=== PATIENT | female | born 1960 | race Caucasian/White ===

== ENCOUNTER 2017-06-28 08:33 | Inpatient (IN) | payer OTHER ==
[2017-06-27 12:55] LABS: HEMATOCRIT 39.9 % (34.6-47.8); HEMOGLOBIN 13.4 g/dL (11.7-16.4); WHITE BLOOD COUNT 10.4 x10^3/uL (3.4-10)
[2017-06-27 13:07] LABS: BLOOD UREA NITROGEN 14 mg/dL (7-18)
[~2017-06-28] VITALS: Ht 170.2 cm; Wt 67.5 kg
[~2017-06-28 08:33] MED LIST: CALC-141 PO; CHOL500045 PO; LEVO137T2 PO; OMEG1CAP39 PO
[2017-06-28] MEDS ORDERED: FENTANYL PF 250 MCG/5ML ONE (14:26)
[2017-06-28] MEDS ORDERED: MIDAZOLAM 1 MG/ML, 2ML ONE (14:26)
[2017-06-28] MEDS ORDERED: LIDOCAINE 1%, 2ML ONE (14:40)
[2017-06-28] MEDS ORDERED: LACTATED RINGERS 1,000 ML IV SCH (14:44)
[2017-06-28 14:55] VITALS: BP 130/78
[2017-06-28] MEDS ORDERED: LIDOCAINE 1%, 2ML SQ PRN (15:00)
[2017-06-28] MEDS ORDERED: KETOROLAC 60 MG/2 ML ONE (15:01)
[2017-06-28] MEDS ORDERED: EPINEPHRINE 1 MG/ML, 1ML ONE (15:02)
[2017-06-28] MEDS ORDERED: TRANEXAMIC ACID 100 MG/ML, 10ML ONE (15:02)
[2017-06-28] MEDS ORDERED: ROPivacaine/PF 0.2%, 10 ML ONE (15:02)
[2017-06-28] MEDS ORDERED: SODIUM CHLORIDE 0.9% 0 ML ONE (15:02)
[2017-06-28] MEDS ORDERED: HYDROmorphone 2 MG/ML, 1ML ONE (15:32)
[2017-06-28] MEDS ORDERED: VANCOMYCIN 1,000 MG ONE (15:43)
[2017-06-28] MEDS ORDERED: KETAMINE 10 MG/ML, 20ML ONE (15:54)
[2017-06-28] MEDS ORDERED: ALBUTEROL/IPRATROPIUM 2.5MG/0.5MG, 3 ML NPPB PRN (16:30)
[2017-06-28] MEDS ORDERED: PROMETHAZINE 25 MG/ML, 1ML IV PRN (16:30)
[2017-06-28] MEDS ORDERED: FENTANYL PF 100 MCG/2ML IV PRN (16:30)
[2017-06-28] MEDS ORDERED: LORazepam 2 MG/ML, 1ML IVPush PRN (16:30)
[2017-06-28] MEDS ORDERED: LABETALOL 5MG/ML, 20ML IV PRN (16:30)
[2017-06-28] MEDS ORDERED: DIAZEPAM 5 MG/ML, 2ML IVPush PRN (16:30)
[2017-06-28] MEDS ORDERED: OXYcodone 5 MG/5 ML ORAL.SOL UDC PO PRN (16:30)
[2017-06-28] MEDS ORDERED: hydrALAzine 20 MG/ML, 1ML IV PRN (16:30)
[2017-06-28] MEDS ORDERED: ONDANSETRON 2MG/ML, 2ML IVPush PRN (16:30)
[2017-06-28] MEDS ORDERED: HYDROmorphone 1 MG/ML, 1ML IV PRN (16:30)
[2017-06-28] MEDS ORDERED: MIDAZOLAM 1 MG/ML, 2ML IV PRN (16:30)
[2017-06-28] MEDS ORDERED: ACETAMINOPHEN 325 MG TABLET PO PRN (16:30)
[2017-06-28] MEDS ORDERED: MEPERIDINE/PF 25MG/0.5ML IVPush PRN (16:30)
[2017-06-28] MEDS ORDERED: LIDOCAINE-MPF 2% ,5ML ONE ×3 (16:39)
[2017-06-28] MEDS ORDERED: ONDANSETRON 2MG/ML, 2ML ONE (17:03)
[2017-06-28] MEDS ORDERED: PROPOFOL 10 MG/ML, 20ML ONE (17:03)
[2017-06-28] MEDS ORDERED: CEFAZOLIN 1,000 MG ONE (17:03)
[2017-06-28] MEDS ORDERED: DEXAMETHASONE 4 MG/ML, 1ML ONE (17:03)
[2017-06-28] MEDS ORDERED: BUPIVACAINE/PF 0.25% ONE (17:03)
[2017-06-28] MEDS ORDERED: FENTANYL PF 100 MCG/2ML ONE (17:14)
[2017-06-28] MEDS ORDERED: HYDROmorphone 1 MG/ML, 1ML ONE (17:14)
[2017-06-28] MEDS ORDERED: DIPHENHYDRAMINE 25 MG CAPSULE PO PRN (17:30)
[2017-06-28] MEDS ORDERED: PROMETHAZINE 12.5 MG SUPP PR PRN (17:30)
[2017-06-28] MEDS ORDERED: PROMETHAZINE 25 MG/ML, 1ML IM PRN (17:30)
[2017-06-28] MEDS: ACETAMINOPHEN 650 MG/20.3 ML UDC PO SCH (17:30)
[2017-06-28] MEDS ORDERED: ONDANSETRON 4 MG TABLET PO PRN (17:30)
[2017-06-28] MEDS ORDERED: LORazepam 1MG TABLET PO PRN (17:30)
[2017-06-28] MEDS ORDERED: ALUMINUM/MAG/SIMETHICONE 30 ML UDC PO PRN (17:30)
[2017-06-28] MEDS ORDERED: ZOLPIDEM 5MG TABLET PO PRN (17:30)
[2017-06-28] MEDS ORDERED: ONDANSETRON 2MG/ML, 2ML IV PRN (17:30)
[2017-06-28] MEDS ORDERED: BISACODYL 10 MG SUPP PR PRN (17:30)
[2017-06-28] MEDS ORDERED: ACETAMINOPHEN 650 MG/20.3 ML UDC ONE (17:46)
[2017-06-28] MEDS ORDERED: OXYcodone 5 MG/5 ML ORAL.SOL UDC ONE (17:47)
[2017-06-28] MEDS ORDERED: TRANEXAMIC ACID 1,000 MG in SODIUM CHLORIDE 0.9% 100 ML IVPB ONE (18:00)
[2017-06-28] MEDS: HYDROmorphone 1 MG/ML, 1ML IV PRN (19:20)
[2017-06-28 20:00] VITALS: BP 105/66
[2017-06-28] MEDS: OXYcodone IR 5MG TABLET PO PRN (21:56)
[2017-06-28] MEDS: D5%-0.45NACL+KCL 20MEQ 1,000 ML IV SCH (21:57)
[2017-06-28] MEDS: DOCUSATE 100 MG CAPSULE PO SCH (22:52)
[2017-06-29] VITALS (7 sets, daily range): BP systolic 106–125; BP diastolic 61–86
[2017-06-29] MEDS: CEFAZOLIN PMX 1GM/50ML 50 ML IVPB SCH ×3 (00:55→16:38)
[2017-06-29] MEDS: HYDROmorphone 1 MG/ML, 1ML IV PRN ×4 (00:55→15:56)
[2017-06-29] MEDS ORDERED: ACETAMINOPHEN 500 MG TABLET ONE ×3 (01:50→17:46)
[2017-06-29] MEDS: OXYcodone IR 5MG TABLET PO PRN ×6 (01:53→22:56)
[2017-06-29] MEDS: ACETAMINOPHEN 650 MG/20.3 ML UDC PO SCH ×3 (01:53→17:55)
[2017-06-29] MEDS: VANCOMYCIN PMX 1GM/200ML 200 ML IVPB SCH ×2 (05:12→17:20)
[2017-06-29] MEDS ORDERED: DEXAMETHASONE 4 MG/ML, 1ML IVPush SCH (06:00)
[2017-06-29 06:10] LABS: BLOOD UREA NITROGEN 10 mg/dL (7-18)
[2017-06-29] MEDS: ASPIRIN 81 MG TABLET EC PO SCH ×2 (06:13→17:55)
[2017-06-29] MEDS: LEVOTHYROXINE 137 MCG TABLET PO SCH (06:13)
[2017-06-29] MEDS: D5%-0.45NACL+KCL 20MEQ 1,000 ML IV SCH ×2 (08:00→20:00)
[2017-06-29] MEDS: TAMSULOSIN 0.4 MG CAP.ER.24H PO SCH (09:00)
[2017-06-29] MEDS: DOCUSATE 100 MG CAPSULE PO SCH ×2 (09:04→21:24)
[2017-06-29] MEDS ORDERED: ASPIRIN 81 MG TABLET EC PO SCH (18:00)
[2017-06-30] MEDS: HYDROmorphone 1 MG/ML, 1ML IV PRN ×2 (00:25→16:13)
[2017-06-30 01:45] VITALS: BP 99/60
[2017-06-30] MEDS: ACETAMINOPHEN 650 MG/20.3 ML UDC PO SCH ×3 (01:58→18:36)
[2017-06-30] MEDS: CEFAZOLIN PMX 1GM/50ML 50 ML IVPB SCH ×3 (01:58→17:12)
[2017-06-30] MEDS: OXYcodone IR 5MG TABLET PO PRN ×6 (03:07→23:47)
[2017-06-30] MEDS: LEVOTHYROXINE 137 MCG TABLET PO SCH (05:10)
[2017-06-30] MEDS: ASPIRIN 81 MG TABLET EC PO SCH ×2 (05:10→18:36)
[2017-06-30] MEDS: D5%-0.45NACL+KCL 20MEQ 1,000 ML IV SCH ×2 (05:11→18:14)
[2017-06-30 08:23] VITALS: BP 102/57
[2017-06-30] MEDS: DOCUSATE 100 MG CAPSULE PO SCH ×2 (08:55→22:06)
[2017-06-30] MEDS: DIAZEPAM 5 MG TABLET PO PRN (08:55)
[2017-06-30] MEDS: TAMSULOSIN 0.4 MG CAP.ER.24H PO SCH (09:00)
[2017-06-30] MEDS ORDERED: ACETAMINOPHEN 500 MG TABLET ONE ×2 (10:40→18:30)
[2017-06-30 13:05] VITALS: BP 110/63
[2017-06-30] MEDS: MAGNESIUM HYDROXIDE 8%, 30ML UDC PO PRN (16:20)
[2017-06-30 19:00] VITALS: BP 111/70
[2017-07-01] MEDS: HYDROmorphone 1 MG/ML, 1ML IV PRN ×2 (00:37→10:44)
[2017-07-01] MEDS: CEFAZOLIN PMX 1GM/50ML 50 ML IVPB SCH ×2 (00:37→09:19)
[2017-07-01 01:43] VITALS: BP 121/68
[2017-07-01] MEDS ORDERED: ACETAMINOPHEN 500 MG TABLET ONE ×3 (02:00→17:58)
[2017-07-01] MEDS: ACETAMINOPHEN 650 MG/20.3 ML UDC PO SCH ×3 (02:03→18:00)
[2017-07-01] MEDS: D5%-0.45NACL+KCL 20MEQ 1,000 ML IV SCH ×2 (05:21→16:28)
[2017-07-01] MEDS: ASPIRIN 81 MG TABLET EC PO SCH ×2 (05:48→18:00)
[2017-07-01] MEDS: LEVOTHYROXINE 137 MCG TABLET PO SCH (05:49)
[2017-07-01] MEDS: OXYcodone IR 5MG TABLET PO PRN ×4 (07:16→20:47)
[2017-07-01 08:05] VITALS: BP 127/71
[2017-07-01] MEDS: DOCUSATE 100 MG CAPSULE PO SCH ×2 (08:55→20:47)
[2017-07-01] MEDS: MAGNESIUM HYDROXIDE 8%, 30ML UDC PO PRN (08:55)
[2017-07-01] MEDS: TAMSULOSIN 0.4 MG CAP.ER.24H PO SCH (09:00)
[2017-07-01] MEDS ORDERED: OXYcodone IR 5MG TABLET ONE (12:16)
[2017-07-01] MEDS: CEFTRIAXONE PMX 2GM/50ML 50 ML IV SCH (12:52)
[2017-07-01 13:43] VITALS: BP 104/61
[2017-07-01 19:30] VITALS: BP 126/63
[2017-07-02] MEDS: OXYcodone IR 5MG TABLET PO PRN ×6 (01:43→21:25)
[2017-07-02] MEDS ORDERED: ACETAMINOPHEN 500 MG TABLET ONE ×3 (01:44→17:50)
[2017-07-02] MEDS: ACETAMINOPHEN 650 MG/20.3 ML UDC PO SCH ×3 (01:45→17:58)
[2017-07-02 02:42] VITALS: BP 122/67
[2017-07-02] MEDS: D5%-0.45NACL+KCL 20MEQ 1,000 ML IV SCH ×3 (02:46→23:33)
[2017-07-02] MEDS: LEVOTHYROXINE 137 MCG TABLET PO SCH (05:49)
[2017-07-02] MEDS: ASPIRIN 81 MG TABLET EC PO SCH ×2 (05:49→17:58)
[2017-07-02 07:17] VITALS: BP 116/66
[2017-07-02] MEDS: TAMSULOSIN 0.4 MG CAP.ER.24H PO SCH (07:32)
[2017-07-02] MEDS: DOCUSATE 100 MG CAPSULE PO SCH ×2 (07:32→21:24)
[2017-07-02] MEDS: CEFTRIAXONE PMX 2GM/50ML 50 ML IV SCH (12:54)
[2017-07-02 13:26] VITALS: BP 108/67
[2017-07-02] MEDS: DIAZEPAM 5 MG TABLET PO PRN (17:57)
[2017-07-02 19:05] VITALS: BP 110/66
[2017-07-03] MEDS ORDERED: ACETAMINOPHEN 500 MG TABLET ONE ×2 (01:01→11:08)
[2017-07-03] MEDS: ACETAMINOPHEN 650 MG/20.3 ML UDC PO SCH ×2 (01:08→11:10)
[2017-07-03] MEDS: OXYcodone IR 5MG TABLET PO PRN ×4 (01:08→13:13)
[2017-07-03 01:37] LABS: HEMATOCRIT 29.1 % (34.6-47.8); HEMOGLOBIN 9.7 g/dL (11.7-16.4); WHITE BLOOD COUNT 6.5 x10^3/uL (3.4-10)
[2017-07-03 01:44] VITALS: BP 123/65
[2017-07-03 01:48] LABS: ASPARTATE AMINO TRANSFERASE 11 U/L (15-37); BLOOD UREA NITROGEN 15 mg/dL (7-18)
[2017-07-03] MEDS: ASPIRIN 81 MG TABLET EC PO SCH (05:15)
[2017-07-03] MEDS: LEVOTHYROXINE 137 MCG TABLET PO SCH (05:15)
[2017-07-03 06:57] VITALS: BP 109/63
[2017-07-03] MEDS: TAMSULOSIN 0.4 MG CAP.ER.24H PO SCH (09:00)
[2017-07-03] MEDS: DOCUSATE 100 MG CAPSULE PO SCH (09:03)
[2017-07-03] MEDS: D5%-0.45NACL+KCL 20MEQ 1,000 ML IV SCH (12:56)
[2017-07-03] MEDS: CEFTRIAXONE PMX 2GM/50ML 50 ML IV SCH (13:13)
[2017-07-03 13:54] VITALS: BP 107/70
[2017-07-03] MEDS ORDERED: DIAZ5TAB PO (15:19)
[2017-07-03] MEDS ORDERED: OXYC5CAP2 PO (15:21)
== END 2017-07-03 15:27 | disposition home or self-care (01) | DRG 465 ==
LOC: ORIP 14:26 → 4NOR 18:37 → DCLOUNGE 07-03 15:17
PROVIDERS: ADMIT Orthopaedic Surgery; ATTEND Orthopaedic Surgery
PROC: 0SPD0JZ Removal of Synthetic Substitute from Left Knee Joint, Open Approach (ICD-10-PCS; principal; 2017-06-28 17:15)
PROC: 02HV33Z Insertion of Infusion Device into Superior Vena Cava, Percutaneous Approach (ICD-10-PCS; 2017-06-29)
PROC: B548ZZA Ultrasonography of Superior Vena Cava, Guidance (ICD-10-PCS; 2017-06-29)
DX: M00.9 Pyogenic arthritis, unspecified (principal); B95.5 Unspecified streptococcus as the cause of diseases classified elsewhere; E03.9 Hypothyroidism, unspecified; Z96.652 Presence of left artificial knee joint; M25.562 Pain in left knee; Z79.1 Long term (current) use of non-steroidal anti-inflammatories (NSAID)
CPT/HCPCS: 36415; 36569; 76937; 77001; 80048; 80053; 81003; 82040; 85018; 85025; 85651; 86140; 87070; 87075; 87081; 87102; 87205; 93005; C1713; J0171; J0690; J0696; J1100; J1170; J1885; J2250; J2405; J2704; J2795; J3010; J3370; J3490; C1751; J3480; J7120

== ENCOUNTER → 2017-09-11 | Outpatient (CLI) | payer OTHER ==
[~2017-09-11] MED LIST changes: +ASPI-496 PO; +DIAZ5TAB PO; +OXYC5CAP2 PO
[2017-09-11 11:28] LABS: BASOPHILS # (AUTO) 0.03 x10^3/uL (0-0.1); BASOPHILS % (AUTO) 1 % (0-1); EOSINOPHILS # (AUTO) 0.14 x10^3/uL (0-0.4); EOSINOPHILS % (AUTO) 2 % (1-7); LYMPHOCYTES # (AUTO) 1.54 x10^3/uL (1-3.4); LYMPHOCYTES % (AUTO) 22 % (22-44); MD NO; MEAN CORPUSCULAR HGB CONC 32.9 g/dL (32.4-35.8); MEAN CORPUSCULAR VOLUME 85.2 fL (80-100); MEAN PLATELET VOLUME 9.1 fL (7.4-10.4); MONOCYTES # (AUTO) 0.56 x10^3/uL (0.2-0.8); MONOCYTES % (AUTO) 8 % (2-9); NEUTROPHILS # (AUTO) 4.62 x10^3/uL (1.8-6.8); NEUTROPHILS % (AUTO) 67 % (42-75); PLATELET COUNT 302 x10^3/uL (130-400); RED BLOOD COUNT 5.34 x10^6/uL (3.82-5.3)
[2017-09-11 11:45] LABS: ANION GAP 8 mmol/L (5-15); CALCIUM 9.1 mg/dL (8.5-10.1); CHLORIDE 107 mmol/L (98-107); CREATININE 0.81 mg/dL (0.55-1.02)
[2017-09-11 12:53] LABS: MICROSCOPIC NOT IND
[2017-09-11 12:57] LABS: CULTURE INDICATED? NO
== END | disposition home or self-care (01) ==
LOC: STAR 10:17
PROVIDERS: ATTEND Orthopaedic Surgery
DX: Z01.818 Encounter for other preprocedural examination (principal); R00.1 Bradycardia, unspecified; M17.12 Unilateral primary osteoarthritis, left knee; Z96.652 Presence of left artificial knee joint
CPT/HCPCS: 36415; 80048; 81003; 85025; 87081; 93005